=== PATIENT | female | born 1930 | race Caucasian/White ===

== ENCOUNTER 2016-11-11 13:00 | Inpatient (IN) | payer MEDICARE, BC ==
[~2016-11-11] VITALS: Ht 170.2 cm; Wt 82.9 kg
--- NOTE | ~2016-11-11 | HP ---
PATIENT'S NAME: JUSTINO SOMMER [facility] AGE: 86 Y [address] ROOM: [id number] [place], [place] [address] LOCATION: [facility] ADMIT DATE: 11/11/2016 History & Physical DISCHARGE DATE: FAMILY PHYSICIAN: PHYSICIAN, UNKNOWN ATTENDING PHYSICIAN: Jamie ALFONSO DATE OF SERVICE: ADDENDUM: 1. Once again, the patient has uimj-pa-lnrauoul risk for surgery due to age of 86. The patient has greater than 4 mets. No signs of cardiovascular risk factor or any severe valvular disease. The patient looks compensated, does not look like she is in a heart failure. There is no intervention that is needed to be done at this point, that will change the risks for the patient's surgical intervention. The patient is in stable condition to have the proposed surgery. We will discuss this with Dr. Ayala. I also discussed finding with the patient. To continue home beta-mahin of atenolol while stay. 2. Hypertension, stable. Continue atenolol. We will hold Lasix for now. 3. Hypothyroidism. Continue Synthroid. 4. Chronic back pain. Continue tramadol. Apparently, the patient had reaction to Dilaudid, one given at [place] with itching. We will hold use of Dilaudid. We will use tramadol for now. Greater than 40 minutes was spent on the patient's care. Greater than 50% of time was spent on direct patient care, discussion with the patient's chart review, and discussion with emergency department physician at [place], [place]. The patient on admission code status, DNR. MD SEKOU THOMAS/cee /[id number] D: 813 T: HISTORY & PHYSICAL
--- NOTE | ~2016-11-11 | OR ---
PATIENT'S NAME: JUSTINO SOMMER [facility] AGE: 86 Y [address] ROOM: [place] [address] LOCATION: [facility] ADMIT DATE: 11/11/2016 OR/Procedure Report DISCHARGE DATE: FAMILY PHYSICIAN: Cinthia Ely PA-C ATTENDING PHYSICIAN: Jamie ALFONSO SURGEON: Darrell Ayala MD GOLD LEAF PRINTER: LILY Melendez and Dionte Molina CST/ALUMINA REFINERY OPERATOR. DATE OF PROCEDURE: 11/12/2016 PRE-OP DIAGNOSIS: Primary osteoarthritis, left hip and displaced left hip femoral neck fracture. POST-OP DIAGNOSIS: Primary osteoarthritis, left hip and displaced left hip femoral neck fracture. OPERATION: Left total hip arthroplasty. ANESTHESIA: General endotracheal anesthesia plus subcutaneous and periarticular local anesthesia (ropivacaine with epinephrine and Toradol). ESTIMATED BLOOD LOSS: Approximately 350 mL. DRAIN: None. SPECIMEN: None. COMPLICATIONS: None. IMPLANTS: [place] Trident titanium size 54 mm hemispherical uncemented acetabular shell with 1 dome hole cover and no screws. Rimma X3 Neutral acetabular polyethylene liner with 36 mm inner diameter. [place] Omnifit cemented SANTO femoral component with 10 mm distal centralizer and standard offset fit [place] size medium femoral canal cement restrictor. 36 mm diameter metallic femoral head with +0 mm neck length. Rimma Dall- Miles 2.0 mm beaded cable x1. INDICATION FOR SURGERY: Justino Sommer is an 86-year-old female who presents with advanced left hip primary osteoarthritis, displaced left hip femoral neck fracture, and associated severely compromised activities of daily living. The patient has decided to proceed with hip replacement after having been thoroughly counseled regarding the associated risks, benefits, and limitations. We have specifically reviewed the risks and implications of infection, deep venous thrombosis, pulmonary embolism, mortality, neurovascular complications, blood transfusion (and associated potential for PATIENT'S NAME: JUSTINO SOMMER [facility] AGE: 86 Y [address] ROOM: [place] [address] LOCATION: [facility] ADMIT DATE: 11/11/2016 OR/Procedure Report DISCHARGE DATE: FAMILY PHYSICIAN: Cinthia Eyl PA-C ATTENDING PHYSICIAN: Jamie ALFONSO disease transmission or transfusion reaction), stiffness, instability, leg length discrepancy, mechanical deterioration of the components (due to wear and to loosening), and the potential need for revision. DESCRIPTION OF PROCEDURE: The patient was positioned in a lateral decubitus position with the left side up after administration of anesthesia and prophylactic antibiotics. An axillary roll was placed and the non-operative leg was well padded. The pelvis was locked perpendicularly to the floor on a pegboard. The left hip and entire operative extremity were prepped and draped with vigilant sterile technique. The patient's name as well as the intended operative side and procedure were confirmed with a verbal time-out involving myself, the circulating nurse, the scrub nurse, and the anesthesiologist. The left hip was approached through a standard posterolateral incision. The fascia luisito and the gluteus ion fascia were sharply divided in line with the overlying skin incision. The sciatic nerve was identified and was vigilantly protected throughout the entire case. The short external rotators and posterior capsule were divided from their respective femoral insertions and tagged with four #1 Ethibond sutures for later repair. The hip was posteriorly dislocated with combined flexion, adduction, and internal rotation. The femoral neck osteotomy was performed with an oscillating saw. Inspection of the femoral head demonstrated high-grade partial-thickness articular cartilage loss throughout 80% of its weightbearing surface (greatest medially). There was a displaced femoral neck fracture, which propagated down to within 5 mm of the lesser trochanter at the calcar. For this reason, I placed a cerclage table immediately proximal to the lesser trochanter. Inspection of the acetabulum demonstrated extensive high-grade partial thickness articular cartilage loss throughout the majority of the acetabulum. There was extensive degenerative tearing of the acetabular labrum with a hemarthrosis. There was no dysplasia. Remnants of the acetabular labrum were sharply thoroughly excised. The acetabulum was sequentially progressively reamed up to 53 mm with hemispherical power reamers. The final acetabular shell was impacted into position in 20 degrees of anteversion and 45 degrees of inclination. An excellent Press-fit was obtained. No supplemental dome screw fixation was necessary. A neutral trial liner was inserted. Attention was next focused upon femoral preparation. The femoral canal initiator was utilized. The femoral canal was reamed by hand to a size 9 with tapered conical reamers. The size 9 reamer engaged the end-ostial cortex of the proximal femur. The patient was noted to be moderately severely PATIENT'S NAME: JUSTINO SOMMER [facility] AGE: 86 Y [address] ROOM: [id number] [place], [place] [address] LOCATION: [facility] ADMIT DATE: 11/11/2016 OR/Procedure Report DISCHARGE DATE: FAMILY PHYSICIAN: Cinthia Ely PA-C ATTENDING PHYSICIAN: Jamie ALFONSO osteopenic. For this reason, I elected to proceed with cemented femoral fixation. The femoral canal was subsequently sequentially progressively broached up to a size 7 (with a size 7 cemented broach). The size 7 (with a size 7 cemented) broach obtained excellent axial and rotational stability. Trial reductions with the above specified construct yielded acceptable stability and acceptable reproduction of leg length and offset. All trial components were removed. The final acetabular liner was inserted with excellent circumferential visualization of its locking mechanism to assure adequate deployment. The femoral canal was thoroughly irrigated with a canal brush and bacteriostatic pulsatile saline lavage after placing the femoral canal cement restrictor to the appropriate depth. The femoral canal was dried with vaginal packing prior to filling the canal with [place] Simplex cement (containing premixed tobramycin). The cement was pressurized with a cement gun (gently given the patient's age) and the femoral component was fully seated. All excess cement was removed, and the cement was allowed to harden prior to impaction of the final femoral head. The femoral component achieved excellent axial and rotational stability. The trunnion of the femoral component was vigilantly protected prior to placement of the femoral head. The trunnion of the femoral component was thoroughly cleaned and dried prior to placement of the femoral head. The incision was thoroughly irrigated with bacteriostatic pulsatile saline lavage multiple times throughout the case. The entire joint space was thoroughly inspected and thoroughly irrigated to assure that there was no residual debris of any sort. A final reduction was then performed. After final reduction, the hip could be firmly externally rotated in full extension and zero degrees of abduction without anterior subluxation. In neutral rotation and zero degrees of abduction, the hip could be firmly flexed to 120 degrees without instability. At 90 degrees of flexion and zero degrees abduction, the hip could be internally rotated to 70 degrees before there was any hint of posterior subluxation. The posterior capsule and short external rotators were repaired through two drill holes in the posterior aspect of the greater trochanter. The fascia luisito and gluteus ion fascia were closed with multiple simple and dtbtkz-yg-lihkp interrupted # 1 Ethibond and #1 Vicryl sutures. Subcutaneous tissues were thoroughly re-irrigated with bacteriostatic pulsatile saline lavage. Subcutaneous tissues were re-approximated with simple buried interrupted #0 Vicryl sutures. The skin was closed with superficial buried interrupted 2-0 Vicryl sutures followed by a running subcuticular 3-0 Monocryl suture, followed by Octylseal, followed by Steri- PATIENT'S NAME: JUSTINO SOMMER [facility] AGE: 86 Y [address] ROOM: [place] [address] LOCATION: [facility] ADMIT DATE: 11/11/2016 OR/Procedure Report DISCHARGE DATE: FAMILY PHYSICIAN: Cinthia Ely PA-C ATTENDING PHYSICIAN: Jamie ALFONSO Strips with benzoin, followed by an occlusive Mepilex dressing. There were no intra-operative complications. It should be noted that the physician's gallery assistant played an active, integral role throughout this entire operation. By providing expert retraction, they greatly facilitated and expedited safe and effective exposure of the proximal femur and acetabulum for preparation and implantation of the components. They were also actively involved in the patient's positioning, prepping and draping, as well as wound closure. MD LAMONT PEREZ/cee /[id number] d: 11/13/16 0103 t: 11/25/16 1311, OPERATIVE SUMMARY
--- NOTE | ~2016-11-11 | DS ---
PATIENT'S NAME: JUSTINO SOMMER [facility] AGE: 86 Y [address] ROOM: [id number] [place], [place] [address] LOCATION: [facility] ADMIT DATE: 11/11/2016 Discharge Summary DISCHARGE DATE: 11/14/2016 FAMILY PHYSICIAN: Cinthia Ely PA-C ATTENDING PHYSICIAN: Jamie De La Torre FINAL DIAGNOSIS: 1. Left hip fracture, status post left hip total arthroplasty. 2. Essential hypertension. 3. Chronic back pain. 4. Hypothyroidism. 5. Mitral valve prolapse. CONSULTANTS ON THE CASE: Dr. Ayala. HOSPITAL COURSE: Please see details of admission H and P by Dr. De La Torre. Briefly, the patient was admitted in transfer from [facility] after falling and being found to have a left femoral neck fracture. The patient was transferred due to a higher level of care and necessity of Orthopedic surgery. The patient was optimized preoperatively by Dr. De La Torre and was found to be zzdn-[id number]-olacsuzq risk for surgery secondary to her age, but no further optimization was necessary. Dr. Ayala evaluated the patient on 11/11/2016 and felt that she would be an adequate candidate for total hip arthroplasty. The patient was taken to surgery on 11/12/2016 with general endotracheal anesthesia. She was given routine perioperative clindamycin and was started on Lovenox for DVT prophylaxis after the surgery. The patient recovered well. Her pain was well controlled. She did develop some postoperative hypotension and did get an albumin infusion. The patient's medications were held secondary to the hypotension. On the , the patient was feeling much better. We were able to DC the Duran and the fluids. We did monitor her blood counts and chemistries closely and on the , it was felt that the patient could safely be transferred to swing bed under the care of Dr. Cinthia Ricci. DIAGNOSTICS: On admission, sodium was 142, potassium 5.3, chloride 109, bicarb 22, glucose 93, BUN 24, creatinine 1.3. On day of discharge, sodium 139, potassium 4.3, chloride 106, bicarb 27, glucose 88, BUN 25, creatinine 1.1. Postop day #1, hemoglobin was 8.4, postop day #2, hemoglobin was 8.0. Prealbumin was 16. DISCHARGE INSTRUCTIONS: The patient is discharged to [facility] swing bed, PATIENT'S NAME: JUSTINO SOMMER [facility] AGE: 86 Y [address] ROOM: [id number] [place], [place] [address] LOCATION: [facility] ADMIT DATE: 11/11/2016 Discharge Summary DISCHARGE DATE: 11/14/2016 FAMILY PHYSICIAN: Cinthia Ely PA-C ATTENDING PHYSICIAN: Jamie De La Torre again under the care of Dr. Cinthia Ricci. She will follow up with Dr. Ayala in 7 days. Code status is DNR/DNI. Diet is as tolerated. Weightbearing status is as tolerated with strict hip dislocation precautions. We will continue occupational and physical therapy as indicated. The patient will need 1-2 L of oxygen as needed to maintain sats greater than 90%. The patient's dressing was Mepilex which is to be left in place until followup with Dr. Ayala. The patient's rehab potential is fair. Discharge potential is fair. The patient and family are aware of her condition and prognosis on discharge. DISCHARGE MEDICATIONS: 1. Atenolol 37.5 mg daily. 2. Colace 200 mg at bedtime. 3. Lovenox 40 mg daily with a stop date of 11/26/2016. 4. Imdur 15 mg twice daily. 5. Levothyroxine 100 mcg daily. 6. Tylenol 325-650 mg every 6 hours as needed for pain. 7. Manley 5/325 one to two tablets every 4 hours as needed for pain. 8. Milk of magnesia 30 mL daily p.r.n. 9. Ultram 50 mg 3 times a day as needed. 10. Cranberry extract 200 mg daily. 11. Mobic 15 mg daily. 12. Turmeric complex 1 capsule daily. 13. Vitamin D3, 1000 units daily. 14. Lasix 40 mg 3 days per week. 15. Lasix 20 mg 4 days per week. 16. Multivitamin. 17. Mirapex 0.25 mg at bedtime. We do appreciate participating in this patient's care, and thank you very much for the ability to serve her while hospitalized at [facility]. Time spent coordinating details of discharge was 35 minutes of which was spent coordinating with consulting physicians and Care Management, completion of medication reconciliation, and education to the patient and family on the above-mentioned diagnoses. LILY AMAYA FOR MD GRISELDA BHARDWAJ/modl PATIENT'S NAME: JUSTINO SOMMER [facility] AGE: 86 Y [address] ROOM: [place] [address] LOCATION: [facility] ADMIT DATE: 11/11/2016 Discharge Summary DISCHARGE DATE: 11/14/2016 FAMILY PHYSICIAN: Cinthia Ely PA-C ATTENDING PHYSICIAN: Jamie De La Torre /[id number] CC: Cinthia Ely PA-C d: 11/15/16 0132 t: 11/22/16 1305, DISCHARGE SUMMARY
--- NOTE | ~2016-11-11 | HP ---
PATIENT'S NAME: JUSTINO SOMMER [facility] AGE: 86 Y [address] ROOM: [place] [address] LOCATION: [facility] ADMIT DATE: 11/11/2016 History & Physical DISCHARGE DATE: FAMILY PHYSICIAN: PHYSICIAN, UNKNOWN ATTENDING PHYSICIAN: Jamie ALFONSO DATE OF SERVICE: CHIEF COMPLAINT: Left hip fracture. HISTORY OF PRESENT ILLNESS: The patient is an 86-year-old female with past medical history of mitral valve prolapse and hypertension, who presents from [place] ED with left femoral neck fracture. The patient reports that she was in the bathroom doing laundries, when she reported that her left leg gave up and experienced a fall. She denies any head trauma. She also denies any dizziness, chest pain, shortness of breath, vertigo, and seizure-like activity. The patient was brought into [place] [facility] for evaluation and was found to have left femoral neck fracture. The patient reports that she has had surgery on her right hip before and reports that she is very active around the house. She lives by herself. She reports that she walks regularly outside her apartment and uses four-legged cane to ambulate and denies any shortness of breath or chest pain limiting her activity. The patient also reports that she is active in the house and carries laundry baskets in and around the house with no limitation. The patient denies any fever, chills, productive cough, abdominal pain, nausea, vomiting, vertigo, chest pain, shortness of breath, orthopnea, dizziness, heart flutter, palpitation, and diarrhea. PAST MEDICAL HISTORY: Chronic back pain, hypertension, mitral valve prolapse. PAST SURGICAL HISTORY: Cholecystectomy, appendectomy, hysterectomy, and back surgery. FAMILY HISTORY: Mother of old age at age 103 and had a stroke. SOCIAL HISTORY: The patient denies smoking, denies drinking. She lives by herself. Her recently. PATIENT'S NAME: JUSTINO SOMMER [facility] AGE: 86 Y [address] ROOM: [place] [address] LOCATION: [facility] ADMIT DATE: 11/11/2016 History & Physical DISCHARGE DATE: FAMILY PHYSICIAN: PHYSICIAN, UNKNOWN ATTENDING PHYSICIAN: Jamie ALFONSO MEDICATIONS: Currently being reconciled. REVIEW OF SYSTEMS: All systems have been reviewed and are negative except for what I mentioned in the HPI. PHYSICAL EXAMINATION: VITAL SIGNS: Afebrile, blood pressure 133/70, heart rate of 72, respiratory rate of 17, saturating 97% on room air. GENERAL APPEARANCE: The patient is alert and awake, appears younger than stated age, in no acute distress. HEAD: Normocephalic, atraumatic. EYES: Extraocular muscles are intact. NOSE: No nasal discharge. EARS: No ear discharge. MOUTH: Moist oral mucosa. CHEST: Clear to auscultation bilaterally. HEART: Regular rate and rhythm. No murmurs, rubs, or gallops. ABDOMEN: Soft, nontender, and nondistended. Bowel sounds present. SKIN: Warm to touch. EXTREMITIES: Trace edema. SIDE LASTER TACK: The patient is alert and oriented x3. Motor and sensory grossly intact, except for the left lower extremity due to hip fracture. MUSCULOSKELETAL: No obvious joint effusion noted. LABORATORY DATA: Lab done today at [place] shows sodium of 139, potassium of 4.3, creatinine of 1, blood glucose of 85, and CO2 of 30. White blood cells of 6.3, hemoglobin of 13.5, and platelets 178. INR of 0.98. EKG shows normal sinus rhythm with no ischemic ST and T-wave changes. ASSESSMENT AND PLAN: Left hip fracture. The patient is an 86-year-old female, who presents with left hip fracture, secondary to a fall. No preceding syncope, dizziness, or seizure-like activity before fall or cardiac arrhythmia, palpitation, and chest pain. The patient has greater than 4 METs, and there is no history of severe valvular disease, heart failure, chest pain, or history of coronary artery disease. The patient has txkw-cf-owjwarhn risk for the proposed surgery for left hip fracture fixed due to age. There is no workup that needs to be done to decrease PATIENT'S NAME: JUSTINO SOMMER [facility] AGE: 86 Y [address] ROOM: [id number] [place], [place] [address] LOCATION: [facility] ADMIT DATE: 11/11/2016 History & Physical DISCHARGE DATE: FAMILY PHYSICIAN: PHYSICIAN, UNKNOWN ATTENDING PHYSICIAN: Jamie ALFONSO ADDENDUM: 1. Once again, the patient has hwot-qi-woukuhuz risk for surgery due to age of 86. The patient has greater than 4 mets. No signs of cardiovascular risk factor or any severe valvular disease. The patient looks compensated, does not look like she is in a heart failure. There is no intervention that is needed to be done at this point, that will change the risks for the patient's surgical intervention. The patient is in stable condition to have the proposed surgery. We will discuss this with Dr. Ayala. I also discussed finding with the patient. To continue home beta-mahin of atenolol while stay. 2. Hypertension, stable. Continue atenolol. We will hold Lasix for now. 3. Hypothyroidism. Continue Synthroid. 4. Chronic back pain. Continue tramadol. Apparently, the patient had reaction to Dilaudid, one given at [place] with itching. We will hold use of Dilaudid. We will use tramadol for now. Greater than 40 minutes was spent on the patient's care. Greater than 50% of time was spent on direct patient care, discussion with the patient's chart review, and discussion with emergency department physician at [place], [place]. The patient on admission code status, DNR. MD SEKOU THOMAS/cee /[id number] D: 949 T: 300 HISTORY & PHYSICAL
--- NOTE | ~2016-11-11 | CON ---
PATIENT'S NAME: JUSTINO SOMMER [facility] AGE: 86 Y [address] [place] [facility] [place] [id number] LOCATION: G3N ADMIT DATE: 11/11/2016 Consultation DISCHARGE DATE: FAMILY PHYSICIAN: PHYSICIAN, UNKNOWN ATTENDING PHYSICIAN: Jamie DE LA TORRE DATE OF CONSULTATION: 11/11/2016 HISTORY OF PRESENT ILLNESS: Dr. De La Torre has requested that I provide an inpatient consultation on this 86- year-old female, [facility] with a chief complaint of left hip pain. She has been experiencing chronic progressive low-grade left hip pain, but her hip pain increased dramatically after she fell today. She was unable to get up or bear weight because of her left hip pain. Prior to today, she was living in an apartment building, functioning independently. She uses a walker when she leaves her apartment, but she requires no assistive device when inside. She denies pain elsewhere as a result of the fall. The patient is well known to me based upon the fact that I performed a revision right total hip arthroplasty for her 13 years ago. Her primary right total hip arthroplasty had been affected by the Sulzer acetabular component recall. She underwent femoral and acetabular revisions. Her right hip continues to function well. ALLERGIES: PENICILLIN, TETANUS, CARBAPENEMS, AND LEVAQUIN. MEDICATIONS ON ADMISSION: 1. Atenolol. 2. Lasix. 3. Isosorbide. 4. Levothyroxine. 5. Meloxicam. 6. Tramadol. 7. Turmeric. 8. Multivitamin. ACTIVE MEDICAL PROBLEMS: Hypertension, osteoarthritis, and hypothyroidism. PAST SURGICAL HISTORY: Primary right total hip arthroplasty (performed elsewhere). Revision right total hip arthroplasty (performed by me in 2003). PATIENT'S NAME: JUSTINO SOMMER [facility] AGE: 86 Y [address] ROOM: [address] [address] LOCATION: G3N ADMIT DATE: 11/11/2016 Consultation DISCHARGE DATE: FAMILY PHYSICIAN: PHYSICIAN, UNKNOWN ATTENDING PHYSICIAN: Jamie DE LA TORRE REVIEW OF SYSTEMS: She denies history of diabetes mellitus. She denies history of deep venous thrombosis. She denies head trauma or loss of consciousness today. She denies pain in her other 3 extremities. PHYSICAL EXAMINATION: GENERAL: Alert, oriented, well-hydrated, well-nourished, pleasant, cooperative female, who appears younger than her stated age. EXTREMITIES: Her left lower extremity is shortened and externally rotated versus the right. Hallux valgus on the left. Dorsiflexion and plantar flexion motor strength of the left ankle are 4/5. 1+ dorsalis pedis pulse on the left. There is no peripheral edema in either lower extremity. There are no active skin lesions or masses in either lower extremity. RADIOGRAPHS: Outside AP pelvis and AP views of the left hip as well as the repeat AP view of the left hip and lateral view of the left hip with traction and internal rotation applied demonstrate full thickness joint space narrowing at the medial aspect of the left hip. There is a displaced femoral neck fracture. There is significant generalized osteopenia. The fracture does not appear to extend into the intertrochanteric region. IMPRESSION: Displaced left femoral neck fracture. Preexisting advanced left hip degenerative joint disease with moderate preexisting symptoms. Successful well-functioning revision right total hip arthroplasty. RECOMMENDATIONS: I have discussed the operative and nonoperative options. I have discussed relative risks, benefits, and limitations of internal fixation versus hemiarthroplasty versus total hip arthroplasty. I have recommended total hip arthroplasty (based upon the displaced femoral neck fracture and the preexisting symptomatic left hip degenerative joint disease). I have discussed potential adverse sequelae of the injury itself as well as risks, benefits, limitations, and alternatives to surgery. We have specifically discussed the potential for infection, deep venous thrombosis, pulmonary embolism, mortality, wear, loosening, neurovascular complications, instability, leg length discrepancy, and the potential need for further revision. I had the patient admitted to the Hospitalist Service for preoperative medical optimization and perioperative medical management. PATIENT'S NAME: JUSTINO SOMMER [facility] AGE: 86 Y [address] ROOM: [address] [address] LOCATION: [facility] ADMIT DATE: 11/11/2016 Consultation DISCHARGE DATE: FAMILY PHYSICIAN: PHYSICIAN, UNKNOWN ATTENDING PHYSICIAN: Jamie DE LA TORRE The patient has been placed at bedrest. Mechanical DVT prophylaxis and incentive spirometry have been initiated. We will proceed with total hip arthroplasty tomorrow (pending medical clearance and operating room availability). MD LAMONT PEREZ/cee /[id number] CC: Jamie De La Torre MD d: 11/11/16 2353 t: 11/12/16 1209, CONSULTATION REPORT
[2016-11-11] MEDS ORDERED: CRANBERRY200 MG PO (13:48)
[2016-11-11] MEDS ORDERED: MOBIC15 MG PO (13:49)
[2016-11-11] MEDS ORDERED: LEVOTHROID (S100 MCG PO (13:49)
[2016-11-11] MEDS ORDERED: ULTRAM50 MG PO (13:50)
[2016-11-11] MEDS ORDERED: TURMERIC COMPL1 EACH PO (13:51)
[2016-11-11] MEDS ORDERED: VITAMIN D1000 UNIT PO (13:51)
[2016-11-11] MEDS ORDERED: TENORMIN25 MG PO (13:52)
[2016-11-11] MEDS ORDERED: LASIX20 MG PO ×2 (13:53→13:54)
[2016-11-11] MEDS ORDERED: IMDUR30 MG PO (13:54)
[2016-11-11] MEDS ORDERED: COLACE100 MG PO (13:55)
[2016-11-11] MEDS ORDERED: PHILLIPS'400 MG/5 M PO (13:55)
[2016-11-11] MEDS ORDERED: MULTI VITAMIN1 EACH PO (14:09)
[2016-11-12] MEDS ORDERED: MIRAPEX0.125 MG PO (09:49)
[2016-11-13 04:37] LABS: HEMOGLOBIN 8.4 g/dL (10.0-15.0)
[2016-11-13 11:53] LABS: ANION GAP 16.3 (10.0-19.0); CREATININE 1.3 mg/dL (0.5-1.1)
[2016-11-13 11:54] LABS: POTASSIUM 5.3 mMol/L (3.7-5.1)
[2016-11-14 05:40] LABS: HEMATOCRIT 24.3 % (30.0-46.0)
[2016-11-14 05:55] LABS: ANION GAP 10.3 (10.0-19.0); CALCIUM 7.8 mg/dL (8.5-10.5); CREATININE 1.1 mg/dL (0.5-1.1); POTASSIUM 4.3 mMol/L (3.7-5.1)
== END 2016-11-14 12:45 | disposition swing bed (61) | DRG 470 ==
LOC: G3N 13:00
PROVIDERS: Orthopaedic Surgery; Physician Assistant; ADMIT Internal Medicine
PROC: 0SRB029 Replacement of Left Hip Joint with Metal on Polyethylene Synthetic Substitute, Cemented, Open Approach (ICD-10-PCS; principal; 2016-11-12)
DX: S72.002A Fracture of unspecified part of neck of left femur, initial encounter for closed fracture (principal); N17.9 Acute kidney failure, unspecified; I95.81 Postprocedural hypotension; Z96.641 Presence of right artificial hip joint; E03.9 Hypothyroidism, unspecified; I10 Essential (primary) hypertension; M16.12 Unilateral primary osteoarthritis, left hip; Z66 Do not resuscitate; W18.30XA Fall on same level, unspecified, initial encounter; G89.29 Other chronic pain; M54.9 Dorsalgia, unspecified; I34.1 Nonrheumatic mitral (valve) prolapse
CPT/HCPCS: A9270; C1713; C1776; J1100; J1650; J1885; J2270; J2405; J2795; J3010; J7030; J7042; J7120; P9047